=== PATIENT | male | born 2000 | race Caucasian/White ===

== ENCOUNTER 2024-03-22 08:16 | Outpatient (CLI) | payer BC, SELFPAY | END 2024-03-22 08:17 | disposition home or self-care (01) | LOC: LKVREF 08:17 | PROVIDERS: PCP Family Medicine; Visit Provider Family Medicine | DX: R55 Syncope and collapse (principal); R53.83 Other fatigue; H61.20 Impacted cerumen, unspecified ear | CPT/HCPCS: 80053; 80061; 84443 ==